=== PATIENT | male | born 1950 | race American Indian/Alaskan Native ===

== ENCOUNTER 2017-10-15 12:17 | Observation (INO) | payer MEDICARE ==
[2017-10-15 12:23] VITALS: BMI 15.9
[2017-10-15] MEDS ORDERED: Sodium Chloride 0.9% 1,000 ML IV SCH (12:45)
--- NOTE | 2017-10-15 12:45 | ED PDOC ---
Arrival/HPI - General Chief Complaint: Chest Pain Time Seen by Provider: 10/15/17 12:30 Historian: Patient - History of Present Illness Narrative History of Present Illness (Text): 10/15/17 12:42 pt p/w + 4 weeks onset of intermittent substernal chest pain/pressure with epigastric pain and at times lower back pain; pt states the lower back pain has been severe over the last 3 weeks as well, intermittent; pt states pain is worse ; pt had seen his PCP over this timeframe and thought patient may have gastritis ; pt states no fever/chills/sweats, + intermittent palpitations (chronic), no sob, no appetite changes, + weight loss, no n/v, no numbness/tingling, no urinary/bowel changes, no fall/trauma/sick contact, no travel; pt is here for further eval pt's without other complaints PCP: [facility] endoscopy/coloscopy - performed recently last stress test was ~ 3 years ago Time/Duration: < month (~ 1 month) Symptom Onset: Gradual Symptom Course: Intermittent Quality: Tightness Severity Level: Severe Activities at Onset: Rest Context: Home Past Medical History - Provider Review Nursing Documentation Reviewed: Yes - Travel History Have you recently traveled outside [place] w/in the past 3 mons?: No - Past History Past History: No Previous - Infectious Disease Hx of Infectious Diseases: None - Tetanus Immunization Tetanus Immunization: Unknown - Cardiac Hx Cardiac Disorders: No - Pulmonary Hx Respiratory Disorders: No - Neurological Hx Neurological Disorder: No - HEENT Hx HEENT Disorder: No - Renal Hx Renal Disorder: No - Endocrine/Metabolic Hx Endocrine Disorders: No - Hematological/Oncological Hx Blood Disorders: No - Integumentary Hx Dermatological Disorder: No - Musculoskeletal/Rheumatological Hx Musculoskeletal Disorders: Yes Hx Back Pain: Yes - Gastrointestinal Hx Gastrointestinal Disorders: Yes Other/Comment: gas - Genitourinary/Gynecological Hx Genitourinary Disorders: Yes Other/Comment: decrease urine flow. - Psychiatric Hx Psychophysiologic Disorder: No Hx Substance Use: No Family/Social History - Physician Review Nursing Documentation Reviewed: Yes Family/Social History: No Known Family HX Smoking Status: Never Smoked Hx Alcohol Use: No Hx Substance Use: No Hx Substance Use Treatment: Yes (weed) Allergies/Home Meds Allergies/Adverse Reactions: Allergies No Known Allergies Allergy (Verified 10/15/17 12:23) Home Medications: Home Meds Medication Instructions Recorded Confirmed Baclofen [Lioresal] 10 mg PO BID 10/15/17 10/15/17 Pantoprazole Sodium [Protonix] 40 mg PO DAILY 10/15/17 10/15/17 Pravastatin Sodium [Pravachol] 40 mg PO DAILY 10/15/17 10/15/17 Tamsulosin [Flomax] 0.4 mg PO DAILY 10/15/17 10/15/17 Review of Systems - Review of Systems Constitutional: Fatigue, Weight Change. absent: Fevers Eyes: Normal ENT: Normal Respiratory: Normal Cardiovascular: Chest Pain, Palpitations Gastrointestinal: Abdominal Pain. absent: Nausea, Vomiting Genitourinary Male: Normal Musculoskeletal: Back Pain Skin: Normal. absent: Rash Neurological: Normal Endocrine: Normal Hemo/Lymphatic: Normal Psychiatric: Normal Physical Exam Vital Signs Reviewed: Yes Vital Signs Temp Pulse Resp BP Pulse Ox 10/15/17 14:18 71 18 128/69 99 10/15/17 12:27 98.2 F 76 18 130/73 99 Temperature: Afebrile Blood Pressure: Normal Pulse: Regular Respiratory Rate: Normal Appearance: Positive for: Well-Appearing, Non-Toxic, Other (mildly uncomfortable , resting in bed, alert/awake, GCS = 15, oriented x 3, NAD, cooperative) Pain Distress: None Mental Status: Positive for: Alert and Oriented X 3 - Systems Exam Head: Present: Atraumatic, Normocephalic Pupils: Present: PERRL, Other (no nystagmus, no photophobia, ) Extroacular Muscles: Present: EOMI Conjunctiva: Present: Normal Ears: Present: Normal Mouth: Present: Moist Mucous Membranes, Normal Teeth Pharnyx: Present: Normal Nose (External): Present: Atraumatic Nose (Internal): Present: Normal Inspection Neck: Present: Normal Range of Motion, Trachea Midline, Other (intact ROM, no midline tenderness). No: Meningeal Signs, MIDLINE TENDERNESS Respiratory/Chest: Present: Clear to Auscultation, Good Air Exchange, Other (+S1 , +S2). No: Respiratory Distress, Accessory Muscle Use Cardiovascular: Present: Regular Rate and Rhythm, Normal S1, S2, Other. No: Murmurs Abdomen: Present: Normal Bowel Sounds, Other (well nourished male, no focal tenderness, no foy's sign, no masses/rebound/guarding/rigidity) Back: Present: Normal Inspection. No: CVA Tenderness, Midline Tenderness Upper Extremity: Present: Normal Inspection, Normal ROM, NORMAL PULSES, Neurovascularly Intact, Capillary Refill < 2s Lower Extremity: Present: Normal Inspection, NORMAL PULSES, Normal ROM, Neurovascularly Intact, Capillary Refill < 2 s Neurological: Present: GCS=15, CN II-XII Intact, Speech Normal Skin: Present: Warm, Normal Color, Other (cap refill < 1sec, no ulcerations, no petechiae, no rashes) Psychiatric: Present: Alert, Oriented x 3 Medical Decision Making ED Course and Treatment: 10/15/17 12:45 Impression: chest pain/epigastric pain i have consider all the differential diagnosis regarding pt's chief medical complaints/clinical findings, including but are not limited to: chest pain/ epigastric pain A/P: chest pain/epigastric pain - labs - iv - xray - ct vs us - supportive care - observe/reevaluation 10/15/17 14:20 pt is currently chest pain free pt refused ASA, pt is concern it can worsen his gastritis? 1519 pt is made aware of his medical results due to pt's complaints, will recommend admission/obs for chest pain evaluation pt agrees paging Dr Saldana 10/15/17 15:38 Dr Saldana contacted, made aware, agrees with admission/obs, would like to consult Dr Davenport (cards) Re-evaluation Time: 15:19 Reassessment Condition: Improved - Lab Interpretations Lab Results: 10/15/17 12:39 10/15/17 13:09 Lab Results 10/15/17 14:00: Urine Color Yellow, Urine Appearance Clear, Urine pH 6.0, Ur Specific [place] 1.010, Urine Protein Negative, Urine Glucose (UA) Negative, Urine Ketones Negative, Urine Blood Negative, Urine Nitrate Negative, Urine Bilirubin Negative, Urine Urobilinogen 0.2, Ur Leukocyte Esterase Negative 10/15/17 13:09: Sodium 141, Potassium 3.7, Chloride 107, Carbon Dioxide 21, Anion Gap 17, BUN 11, Creatinine 0.7 L, Est GFR ( Amer) > 60, Est GFR ( Non-Af Amer) > 60, Random Glucose 99, Calcium 9.7, Magnesium 2.2, Total Bilirubin 0.6, AST 42, ALT 32, Alkaline Phosphatase 66, Lactate Dehydrogenase 331 L, Total Creatine Kinase 92, Troponin I < 0.01, NT-Pro-B Natriuret Pep 178, Total Protein 7.5, Albumin 4.7, Globulin 2.8, Albumin/Globulin Ratio 1.6, Lipase 89 10/15/17 12:39: WBC 5.3, RBC 4.03, Hgb 12.1 L, Hct 34.6 L, MCV 85.9, MCH 30.0, MCHC 35.0, RDW 13.7, Plt Count 160, MPV 9.8, Gran % 44.8 L, Lymph % (Auto) 45.7 H, [place] % (Auto) 8.3 H, Eos % (Auto) 0.8 L, Baso % (Auto) 0.4, Gran # 2.37, Lymph # (Auto) 2.4, [place] # (Auto) 0.4, Eos # (Auto) 0.0, Baso # (Auto) 0.02 I have reviewed the lab results: Yes Interpretation: All labs normal - RAD Interpretation Narrative RAD Interpretations (Text): 10/15/17 15:09 Chest X-ray reviewed by radiologist, shows: LUNGS: No active pulmonary disease. PLEURA: No significant pleural effusion identified. No pneumothorax apparent. CARDIOVASCULAR: Normal. OSSEOUS STRUCTURES: No significant abnormalities. VISUALIZED UPPER ABDOMEN: Normal. OTHER FINDINGS: None. IMPRESSION: No active disease. X-ray of Lumbar Spine reviewed, shows: BONES: Normal alignment. No listhesis. No fracture. DISC SPACES: Unremarkable. OTHER FINDINGS: None. IMPRESSION: Unremarkable radiographs of the lumbar spine. US of Abdomen reviewed by radiologist, shows: LIVER: Measures 18.2 cm. Patent portal vein. Portal venous flow: Hepatopetal. Unremarkable echogenicity of the liver parenchyma. No mass. No intrahepatic bile duct dilatation. GALLBLADDER: Unremarkable. No gallstones. COMMON BILE DUCT: Measures 4.4 mm. No stones. No dilatation. PANCREAS: Unremarkable as visualized. No mass. No ductal dilatation. RIGHT KIDNEY: Measures 3.85 x 10.6cm. Normal echogenicity. No calculus, mass, or hydronephrosis. LEFT KIDNEY: Measures 4.9 x 10.7cm. Normal echogenicity. No calculus, mass, or hydronephrosis. SPLEEN: Normal in size and contour. No mass. AORTA: No aneurysmal dilatation. IVC: Unremarkable. OTHER FINDINGS: None. IMPRESSION: Unremarkable abdominal sonogram. 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 - Medication Orders Current Medication Orders: Sodium Chloride (Sodium Chloride 0.9%) 1,000 mls @ 100 mls/hr IV .Q10H MARY Last Admin: 10/15/17 13:16 Dose: 100 mls/hr eMAR Start Stop Document 10/15/17 13:16 EQ (Rec: 10/15/17 13:17 EQ [id number]) Intravenous Solution Start Date 10/15/17 Start Time 13:17 Discontinued Medications Aspirin (Aspirin) 325 mg PO STAT STA Stop: 10/15/17 12:40 Last Admin: 10/15/17 13:17 Dose: Not Given Non-Admin Reason: Patient Refused Comments: pt refused aspirin 325mg PO as ordered because "it cantrell" his stomach. Disposition/Present on Arrival - Present on Arrival Any Indicators Present on Arrival: No History of DVT/PE: No History of Uncontrolled Diabetes: No Urinary Catheter: No History of Decub. Ulcer: No History Surgical Site Infection Following: None - Disposition Have Diagnosis and Disposition been Completed?: Yes Diagnosis: Chest pain with minimal risk of acute coronary syndrome, Low back pain Disposition: HOSPITALIZED Disposition Time: 15:24 Patient Plan: Admission, Observation Patient Problems: Current Active Problems Problem Status Onset Chest pain with minimal risk of acute coronary syndrome Acute Condition: STABLE Discharge Instructions (ExitCare): Chest Pain (ED) Referrals: Garry Recinos MD [Primary Care Provider] - Follow up with primary Forms: extraTKT ([place])
[2017-10-15 12:59] LABS: BASO # 0.02 K/mm3 (0.0-2.0); BASO % 0.4 % (0.0-3.0); EOS % 0.8 % (1.5-5.0); GRAN # 2.37 (1.4-6.5); GRAN % 44.8 % (50.0-68.0); HEMOGLOBIN 12.1 g/dL (14.0-18.0); LYMPH # 2.4 (1.2-3.4); LYMPH % 45.7 % (22.0-35.0); MEAN CELL VOLUME 85.9 fl (80.0-105.0); MEAN PLATELET VOLUME 9.8 fl (7.0-11.0); MONO # 0.4 (0.1-0.6); MONO % 8.3 % (1.0-6.0); RBC 4.03 10^6/uL (3.5-6.1); RED CELL DISTRIBUTION WIDTH 13.7 % (11.5-14.5); WHITE BLOOD COUNT 5.3 10^3/ul (4.5-11.0)
--- NOTE | 2017-10-15 13:10 | RAD ---
PROCEDURE: Radiographs of the Lumbar Spine. HISTORY: lower back pain, no trauma COMPARISON: No prior. FINDINGS: BONES: Normal alignment. No listhesis. No fracture. DISC SPACES: Unremarkable. OTHER FINDINGS: None. IMPRESSION: Unremarkable radiographs of the lumbar spine.
--- NOTE | 2017-10-15 13:10 | RAD ---
HISTORY: chest pain COMPARISON: No prior. TECHNIQUE: Chest PA and lateral FINDINGS: LUNGS: No active pulmonary disease. PLEURA: No significant pleural effusion identified. No pneumothorax apparent. CARDIOVASCULAR: Normal. OSSEOUS STRUCTURES: No significant abnormalities. VISUALIZED UPPER ABDOMEN: Normal. OTHER FINDINGS: None. IMPRESSION: No active disease.
[2017-10-15 13:35] LABS: ALB/GLOB RATIO 1.6 (1.1-1.8); ALBUMIN 4.7 g/dL (3.0-4.8); ALT/SGPT 32 U/L (7-56); AST/SGOT 42 U/L (17-59); BLOOD UREA NITROGEN 11 mg/dL (7-21); CALCIUM 9.7 mg/dL (8.4-10.5); GFR AFRICAN-AMERICAN > 60; GFR NON-AFRICAN AMERICAN > 60; LIPASE 89 U/L (23-300)
--- NOTE | 2017-10-15 13:48 | US ---
HISTORY: Chest pain, epigastric pain. COMPARISON: None. TECHNIQUE: Sonographic evaluation of the abdomen. FINDINGS: LIVER: Measures 18.2 cm. Patent portal vein. Portal venous flow: Hepatopetal. Unremarkable echogenicity of the liver parenchyma. No mass. No intrahepatic bile duct dilatation. GALLBLADDER: Unremarkable. No gallstones. COMMON BILE DUCT: Measures 4.4 mm. No stones. No dilatation. PANCREAS: Unremarkable as visualized. No mass. No ductal dilatation. RIGHT KIDNEY: Measures 3.85 x 10.6cm. Normal echogenicity. No calculus, mass, or hydronephrosis. LEFT KIDNEY: Measures 4.9 x 10.7cm. Normal echogenicity. No calculus, mass, or hydronephrosis. SPLEEN: Normal in size and contour. No mass. AORTA: No aneurysmal dilatation. IVC: Unremarkable. OTHER FINDINGS: None. IMPRESSION: Unremarkable abdominal sonogram.
[2017-10-15 13:54] LABS: B-TYPE NATRIURETIC PEPTIDE 178 pg/mL (0-450); TROPONIN I < 0.01 ng/mL
[2017-10-15 14:09] LABS: URINE BILIRUBIN NEGATIVE (NEGATIVE); URINE BLOOD NEGATIVE (NEGATIVE); URINE GLUCOSE (UA) NEGATIVE (NEGATIVE); URINE LEUKOCYTE ESTERASE NEGATIVE Leu/uL (NEGATIVE); URINE PROTEIN NEGATIVE mg/dL (<30 mg/dL); URINE UROBILINOGEN 0.2 E.U./dL (<1 E.U./dL)
[2017-10-15 14:10] LABS: URINE APPEARANCE CLEAR (CLEAR); URINE COLOR YELLOW (YELLOW)
[2017-10-15 20:10] LABS: ALBUMIN 4.2 g/dL (3.0-4.8)
[2017-10-15 20:23] LABS: B-TYPE NATRIURETIC PEPTIDE 233 pg/mL (0-450); TROPONIN I < 0.01 ng/mL
[2017-10-16 03:08] LABS: TROPONIN I < 0.01 ng/mL
[2017-10-16] MEDS ORDERED: Pantoprazole 40 mg EC Tab PO SCH (06:00)
--- NOTE | 2017-10-16 06:23 | CON ---
DATE: 10/15/2017 REASON FOR CONSULTATION: Cardiac evaluation, rule out underlying coronary artery disease. BRIEF CLINICAL HISTORY: This is a 67-year-old male with a complaint of back pain and feel sometimes the presence of a funny sensation and from the cancer, so wanted to get it checked it out. Denies any chest pain. Denies any shortness of breath. Denies any palpitation. PAST MEDICAL HISTORY: Significant for hypertension, benign prostatic hypertrophy, hyperlipidemia, being followed by Dr Garry Recinos. SOCIAL HISTORY: Denies smoking, but used to drink 3 cans of beer everyday. FAMILY HISTORY: Significant for coronary artery disease. PHYSICAL EXAMINATION: VITAL SIGNS: Temperature afebrile, heart rate is 76, blood pressure 136/85. HEENT: PERRLA. Extraocular muscles intact. NECK: Supple. No carotid bruit or thyromegaly. CHEST: Clear to auscultation. HEART: S1 and S2 regular. ABDOMEN: Soft. EXTREMITIES: Clubbing and cyanosis negative. LABORATORY DATA: EKG, normal sinus. No acute ST-T changes noted. Blood workup: WBC 5.3, hemoglobin 12.1, hematocrit 34.6, platelet count 160. Chemistry shows sodium 141, potassium 3, chloride 107, carbon dioxide 21, anion gap of 17, BUN 11, creatinine 0.7. Troponin 0.01x2 negative. EKG showed normal sinus. No acute ST-T changes noted. IMPRESSION: No evidence of acute myocardial effusion so far, history of benign prostatic hypertrophy, history of gastric , hyperlipidemia, history of alcohol abuse. Given the multiple risk factors of coronary artery, suggest echo and a stress test as outpatient. Discussed with the patient that patient can be discharged tomorrow if the third sets remain negative. Follow up a stress test as outpatient next week. Patient agreed. We will get echo, lipid profile, TSH, hemoglobin A1c tomorrow and then we will get a stress test as an outpatient. We will schedule a stress test as outpatient. So far the chest pain is atypical back pain. Denies any chest pain but given the multiple risks factors, we will suggest a stress test and echo as an outpatient. We will schedule on next Wednesday or Wednesday for a stress test. Thank you Dr. Saldana for providing me the opportunity in taking care of the patient, Mauricio Ibrahim. Zackery Abreu MD [facility] # [id number]
[2017-10-16 07:08] LABS: BASO # 0.01 K/mm3 (0.0-2.0); BASO % 0.3 % (0.0-3.0); EOS # 0.1 (0.0-0.7); EOS % 2.8 % (1.5-5.0); GRAN # 1.59 (1.4-6.5); GRAN % 40.2 % (50.0-68.0); HEMOGLOBIN 11.1 g/dL (14.0-18.0); LYMPH % 49.4 % (22.0-35.0); MEAN CELL VOLUME 85.4 fl (80.0-105.0); MEAN CORPUSCULAR HEMOGLOBIN 29.4 pg (25.0-35.0); MEAN CORPUSCULAR HGB CONC 34.5 g/dl (31.0-37.0); MEAN PLATELET VOLUME 10.4 fl (7.0-11.0); MONO # 0.3 (0.1-0.6); MONO % 7.3 % (1.0-6.0); RBC 3.77 10^6/uL (3.5-6.1); RED CELL DISTRIBUTION WIDTH 13.7 % (11.5-14.5)
[2017-10-16 07:26] LABS: IRON 100 ug/dL (45-180)
[2017-10-16 07:39] LABS: LDL CHOLESTEROL 90 mg/dL (0-129); TROPONIN I < 0.01 ng/mL
[2017-10-16 07:40] LABS: % IRON SATURATION 36 % (20-55); TOTAL IRON BINDING CAPACITY 274 ug/dL (261-462)
[2017-10-16 07:41] LABS: ALB/GLOB RATIO 1.4 (1.1-1.8); ALBUMIN 3.7 g/dL (3.0-4.8); ALT/SGPT 34 U/L (7-56); AST/SGOT 38 U/L (17-59); BLOOD UREA NITROGEN 7 mg/dL (7-21); CALCIUM 8.9 mg/dL (8.4-10.5); GFR AFRICAN-AMERICAN > 60; GFR NON-AFRICAN AMERICAN > 60; HDL CHOLESTEROL 77 mg/dL (29-60)
[2017-10-16 09:03] VITALS: BP 122/84; PULSE 70; RESP 18; TEMP 98.3; O2SAT 100
[2017-10-16 09:13] LABS: TROPONIN I < 0.01 ng/mL
--- NOTE | 2017-10-16 09:31 | CARD ---
APPROVED REPORT EKG Measurement Heart [id number] <Conclusion> Normal sinus rhythm with APCs RVCD LVH by voltage
[2017-10-16] MEDS ORDERED: Potassium Chloride 20 mEq ER Tab PO STA (11:22)
[2017-10-16 12:53] LABS: FOLATE 19.8 ng/mL
--- NOTE | 2017-10-16 17:43 | PN ---
DATE: I am covering Dr. Abreu. SUBJECTIVE: The patient denies chest pain or shortness of breath at this time. He is eating his lunch. No reported ventricular tachycardia. OBJECTIVE: VITAL SIGNS: Blood pressure 122/84, heart rate 70, temperature 98.3, respirations 18. HEENT: Normocephalic. CHEST: Minimal bilateral rhonchi. HEART: S1, S2, regular. EXTREMITIES: No edema. LABORATORY DATA: SMA-7: Sodium 142, potassium 3.5, chloride 111, CO2 of 25. Glucose 90. BUN 7, creatinine 0.7. Four sets of troponin's are negative. Lipid profile is within normal limits except for HDL of 77. TSH level is within normal limits. ASSESSMENT: 1. Chest pain, myocardial infarction is ruled out. 2. Hypokalemia. The patient did receive 20 mEq of K-Dur orally today. RECOMMENDATIONS: I did review the echocardiograph study which revealed normal ejection fraction with mild pulmonary retention. The patient can be discharged from the cardiac point of view to be scheduled for an outpatient stress test. Xavier Newell MD
--- NOTE | 2017-10-17 00:42 | HP ---
CHIEF COMPLAINT: Chest pain. HISTORY OF PRESENT ILLNESS: Mr. Mauricio Ibrahim, 67-year-old male, private patient of Dr. Garry Recinos with history of multiple medical problems, came with intermittent substernal chest pain like pressure with epigastric pain. At times, lower back pain. The patient says that the lower back pain has been severe over the past 3 weeks as well as intermittent. The patient says that it is worse. Especially, he has chest pain over this timeframe and thought that the patient may have a gastritis. No fever. No chills. Intermittent palpitation. No shortness of breath. No appetite change. No weight loss. No nausea, vomiting, diarrhea. No fever. No chills. We admitted the patient. Called cardiology consult with Dr. Abreu. He saw the patient. Lumbar spine x-ray done. Chest x-ray done. The patient cleared by Dr. Abreu for discharge with followup stress test as outpatient. Today, when I saw the patient no more chest pain, so the patient will follow up with Dr. Garry Recinos also. PAST MEDICAL HISTORY: Back pain, GERD, dyspepsia. FAMILY HISTORY: Father, mother noncontributory. HABITS: Never smoked, no drug, no ethanol, but using weed. ALLERGIES: THE PATIENT IS NOT ALLERGIC WITH ANY MEDICATION. HOME MEDICATIONS: Baclofen, Protonix, Pravachol, Flomax. REVIEW OF SYSTEMS: The patient is seen and examined at the bedside by me in his room. Looking comfortable. Chest pain is gone. Back pain is better. No nausea, vomiting, diarrhea. No hematemesis, hematochezia. No fever. No chills. No headache or dizziness. PHYSICAL EXAMINATION: VITAL SIGNS: Temperature 98.3, pulse 70, blood pressure 122/84, respiratory rate 18. HEENT: Head normocephalic, atraumatic. Eyes PERRLA. Extraocular muscles intact. Conjunctivae clear. Nose patent. Mucous membrane moist. NECK: Supple. No carotid bruit. No JVD or thyromegaly. CHEST: Bilaterally symmetrical. HEART: S1 and S2 positive. LUNGS: Clear to auscultation. ABDOMEN: Soft. Bowel sounds positive. No organomegaly. EXTREMITIES: No edema. No cyanosis. NEUROLOGICAL: The patient is awake and alert. Moving all 4 extremities. No focal deficits. LABORATORY DATA: White blood cells 4, hemoglobin 11.1, hematocrit 32.2, platelets 149. Sodium 142, potassium 3.5, BUN 7, creatinine 0.7, glucose 287, HDL 77. ASSESSMENT AND PLAN: Mr. Mauricio Ibrahim, 67-year-old male with leukopenia, anemia, came with chest pain. Cardiac enzymes done x4, less than 0.01. Seen by woodwind reeds cutter, Dr. Abreu. The patient has history of hypertension, benign prostatic hypertrophy, hypercholesterolemia, back pain. No evidence of acute myocardial infarction so far as per Dr. Abreu. History of ethanol abuse. Given the multiple risk factors for coronary artery disease, suggested echo and stress test as outpatient per woodwind reeds cutter. Change Agent cleared the patient after drawing 3 sets of cardiac enzymes and 3 sets are negative. The patient agreed and woodwind reeds cutter agreed to follow up as outpatient. Chest pain looks like atypical by woodwind reeds cutter. Continue home medications. Seen by Dr. Xavier Newell, covering Dr. Abreu today. Hypokalemia, the patient received 20 mEq of K-Dur today stat. Dr. Newell reviewed the echocardiograph, which revealed normal ejection fraction with mild pulmonary retention. We will follow up as outpatient by Dr. Garry Recinos and Dr. Abreu. Salina Saldana MD
--- NOTE | 2017-10-17 13:50 | DS ---
SUMMARY: I saw patient only once on 10/16/2017 and I did history and physical on 10/16/2017. For more detail, see my history and physical. Patient was discharged by clearing from Cardiology. We will follow up with Dr. Garry Recinos, primary care physician and physics faculty member, Dr. Abreu. Salina Saldana MD
--- NOTE | 2017-10-18 18:10 | CARD ---
APPROVED REPORT EXAM: Two-dimensional and M-mode echocardiogram with Doppler and color Doppler. INDICATION 2D DIMENSIONS IVSd1.2 (0.7-1.1cm)LVDd4.6 (3.9-5.9cm) PWd1.0 (0.7-1.1cm)LVDs3.0 (2.5-4.0cm) FS (%) 35.3 %LVEF (%)64.7 (>50%) M-Mode DIMENSIONS Left Atrium (MM)3.90 (2.5-4.0cm)Aortic Root3.30 (2.2-3.7cm) Aortic Cusp Exc.2.20 (1.5-2.0cm) Aortic Valve AoV Peak Hqquadxc457.0cm/Michael Peak GR.6mmHg Mitral Valve MV E Zgtyecnc50.7cm/sMV E Peak Gr.107mmHg TDI Lateral E' Peak V15.00cm/sMedial E' Peak V12.90cm/sE/Lateral E'5.0 E/Medial E'5.8 Tricuspid Valve TR Peak [id number]/sRAP [id number] Peak Gr.28mmHg [id number] LEFT VENTRICLE The left ventricle is normal size. There is borderline concentric left ventricular hypertrophy. The left ventricular function is normal.EF-65% There is normal LV segmental wall motion. The left ventricular diastolic function is normal. No left ventricle thrombus noted on this study. There is no ventricular septal defect visualized. There is no left ventricular aneurysm. RIGHT VENTRICLE The right ventricle is normal size. There is normal right ventricular wall thickness. The right ventricular systolic function is normal. ATRIA The left atrium size is normal. The right atrium size is normal. The interatrial septum is intact with no evidence for an atrial septal defect. AORTIC VALVE The aortic valve is thickened but opens well. No aortic regurgitation is present. There is no aortic valvular stenosis. There is no aortic valvular vegetation. MITRAL VALVE The mitral valve is thickened but opens well. Mitral regurgitation is moderate. The mitral regurgitant jet is posteriorly directed, which is consistent with anterior leaflet pathology. There is no mitral valve stenosis. The mitral valve leaflets are thickened and redundant consistent with mitral valve prolapse.( Anterior wall leaf let) TRICUSPID VALVE The tricuspid valve leaflets are thickened , but open well. There is mild to moderate tricuspid regurgitation.RVSp-36 mmof Hg. There is no tricuspid valve stenosis. There is no tricuspid valve prolapse or vegetation. PULMONIC VALVE The pulmonary valve is normal in structure. There is no pulmonic valvular regurgitation. There is no pulmonic valvular stenosis. GREAT VESSELS The aortic root is normal in size. The ascending aorta is normal in size. The pulmonary artery is normal. The IVC is normal in size and collapses >50% with inspiration. PERICARDIAL EFFUSION There is no pleural effusion. There is no pericardial effusion. <Conclusion> Normal Chamber Size. EF-65% Mitral regurgitation is moderate. The mitral regurgitant jet is posteriorly directed, which is consistent with anterior leaflet pathology. The mitral valve leaflets are thickened and redundant consistent with mitral valve prolapse.( Anterior wall leaf let) There is mild to moderate tricuspid regurgitation.RVSp-36 mmof Hg. There is no pericardial effusion. The IVC is normal in size and collapses >50% with inspiration. F/u Echo in 1-2 years is recommended to monitor MR/TR.
== END 2017-10-16 14:04 | disposition home or self-care (01) ==
LOC: ED 12:17 → MERGE 15:03 → ERH 15:03 → 3RNO 16:21
PROVIDERS: ADMIT Internal Medicine; ATTEND Internal Medicine
DX: R07.9 Chest pain, unspecified (principal); M54.5 Low back pain; I10 Essential (primary) hypertension; N40.0 Benign prostatic hyperplasia without lower urinary tract symptoms; E78.5 Hyperlipidemia, unspecified; F10.11 Alcohol abuse, in remission; D64.9 Anemia, unspecified; D72.819 Decreased white blood cell count, unspecified; E78.00 Pure hypercholesterolemia, unspecified; E87.6 Hypokalemia; F12.90 Cannabis use, unspecified, uncomplicated; K21.9 Gastro-esophageal reflux disease without esophagitis; Z82.49 Family history of ischemic heart disease and other diseases of the circulatory system; R40.2412 Glasgow coma scale score 13-15, at arrival to emergency department
CPT/HCPCS: 36415; 71046; 72110; 76700; 80053; 80061; 81003; 82040; 82550; 82746; 83036; 83540; 83550; 83615; 83690; 83735; 83880; 84443; 84484; 85025; 85027; 93005; 93306; 99284; G0378; J7040